=== PATIENT | female | born 1960 | race Two or more races ===

== ENCOUNTER 2023-02-04 21:39 | Emergency (ER) | payer SELFPAY ==
[~2023-02-04] VITALS: Ht 162.6 cm; Wt 90.9 kg
[2023-02-04] MEDS ORDERED: ONDANSETRON HCL 4 MG TABLET PO ONE (23:00)
[2023-02-04] MEDS ORDERED: LIDOCAINE 5% TRANSDERMAL PATCH TD ONE (23:00)
[2023-02-04] MEDS ORDERED: ACETAMINOPHEN 325 MG TABLET PO ONE (23:00)
[2023-02-05] MEDS ORDERED: OxyCODONE HCL/ACETAMINOPHEN 5-325 MG TABLET PO ONE (04:45)
[2023-02-05] MEDS ORDERED: KETOROLAC TROMETHAMINE 30 MG/ML VIAL IM ONE (04:45)
[2023-02-05 07:15] VITALS: BP 126/76
== END 2023-02-05 08:20 | disposition home or self-care (01) ==
LOC: EMS 21:39
DX: S09.90XA Unspecified injury of head, initial encounter (principal); M53.3 Sacrococcygeal disorders, not elsewhere classified; E11.9 Type 2 diabetes mellitus without complications; X58.XXXA Exposure to other specified factors, initial encounter; Y93.89 Activity, other specified; Y92.89 Other specified places as the place of occurrence of the external cause; Y99.8 Other external cause status
CPT/HCPCS: 99285; 82962; 70450; 72192; 72131; 96372; Q0162; J1885